=== PATIENT | female | born 1985 | race Two or more races ===

== ENCOUNTER 2021-09-05 01:54 | Emergency (ER) | payer OTHER ==
[~2021-09-05] VITALS: Ht 167.6 cm; Wt 72.6 kg
--- NOTE | 2021-09-05 02:23 | PHYS DOC ---
Past History Past Medical History: UTI Past Surgical History: No Surgical History Smoking: Non-smoker Alcohol Use: Occasionally Drug Use: None General Adult EDM: Chief Complaint: URINARY FREQUENCY HPI: HPI: 36-year-old female presents with report of dysuria and increased urinary frequency upon waking this morning. Patient denies any fever or chills. Denies flank pain. Denies hematuria. Patient does have past medical history of amando quent UTIs. Denies trauma. Review of Systems: Review of Systems: Constitutional: Denies fever or chills Eyes: Denies redness or eye pain HENT: Denies nasal congestion or sore throat Respiratory: Denies cough or shortness of breath Cardiovascular: Denies chest pain or palpitations GI: Denies abdominal pain, nausea, or vomiting : Reports dysuria and urinary frequency; denies hematuria Musculoskeletal: Denies back pain or joint pain Integument: Denies rash or skin lesions Neurologic: Denies headache, focal weakness or sensory changes Complete systems were reviewed and found to be within normal limits, except as documented in this note. Allergies: Allergies: Allergies Coded Allergies Type Severity Reaction Last Updated Verified Penicillins Allergy Unknown 09/05/21 Yes Sulfa (Sulfonamide Antibiotics) Allergy Unknown 09/05/21 Yes Physical Exam: PE: Constitutional: Well developed, well nourished, no acute distress, non-toxic appearance HENT: Normocephalic, atraumatic Eyes: Conjunctiva normal, no discharge Neck: Normal range of motion, supple Lungs & Thorax: No respiratory distress, equal chest rise and fall Abdomen: Soft, mild suprapubic tenderness, no guarding/rebound tenderness/distention Skin: Warm, dry, no erythema, no rash Back: No tenderness, no CVA tenderness Extremities: No tenderness, ROM intact, no edema Neurologic: Alert and oriented X 3, no focal deficits noted Psychologic: Affect normal, judgment normal Current Patient Data: Labs: Laboratory Tests Test 09/05/21 02:13 POC Urine HCG, Qualitative hcg negative (Negative) Vital Signs: Vital Signs Date Time Temp Pulse Resp B/P (MAP) Pulse Ox O2 Delivery O2 Flow Rate FiO2 09/05/21 02:02 97.5 65 16 116/70 (85) 97 Room Air EKG: EKG: [] Radiology/Procedures: Radiology/Procedures: [] Heart Score: C/O Chest Pain: N/A Course & Med Decision Making: Course & Med Decision Making Pertinent Lab studies reviewed. (See chart for details) Patient presents with report of dysuria and increased urinary frequency upon waking this morning. History of frequent UTIs. UA obtained with signs of infection. Urine negative. Symptomatic treatment provided with Pyridium. Empiric antibiotic initiated. Patient stable for discharge with outpatient follow-up with PCP. Discussed findings and plan with patient, who acknowledges understanding and agreement. Zeb Disclaimer: Zeb Disclaimer: This electronic medical record was generated, in whole or in part, using a voice recognition dictation system. Departure Departure: Impression: Primary Impression: Urinary tract infection Qualified Codes: N30.00 - Acute cystitis without hematuria Disposition: HOME / SELF CARE / HOMELESS Condition: STABLE Referrals: PCP,UNKNOWN (PCP) Patient Instructions: Urinary Tract Infection, [id number] Scripts Phenazopyridine Hcl (PYRIDIUM) 200 Mg Tablet 200 MG PO Q8HRS for urinary tract infection for 2 Days, #6 TAB Prov: VINNY CARLOS DO 09/05/21 Cephalexin (KEFLEX) 500 Mg Capsule 1 CAP PO TID for UTI for 7 Days, #21 CAP Prov: VINNY CARLOS DO 09/05/21 VINNY CARLOS DO Sep 05, 2021 02:23
[2021-09-05 02:31] LABS: BACTERIA,URINE FEW /HPF (0-FEW); BILIRUBIN,URINE NEG (NEG); CLARITY,URINE CLEAR; COLOR,URINE YELLOW; GLUCOSE,URINE NEG (NEG); NITRITE,URINE NEG (NEG); RBC,URINE OCC /HPF (0-2); SQUAMOUS EPITHELIAL CELL,UR FEW /LPF; UROBILINOGEN,URINE 0.2 mg/dL (0.2 mg/dL)
[2021-09-05] MEDS ORDERED: CEPH500C PO (02:36)
[2021-09-05] MEDS ORDERED: PHEN-318 PO (02:36)
[2021-09-05] MEDS ORDERED: PHENAZOPYRIDINE 200 MG TABLET. ONE (02:39)
[2021-09-05] MEDS ORDERED: CEPHALEXIN 250 MG CAPSULE ONE (02:39)
[2021-09-05 02:42] VITALS: BP 114/80
[2021-09-05] MEDS ORDERED: CEPHALEXIN 250 MG CAPSULE PO ONE (02:45)
[2021-09-05] MEDS ORDERED: PHENAZOPYRIDINE 200 MG TABLET. PO ONE (02:45)
== END 2021-09-05 02:43 | disposition home or self-care (01) ==
LOC: ER 01:54
DX: N30.00 Acute cystitis without hematuria (principal); Z87.440 Personal history of urinary (tract) infections; Z88.0 Allergy status to penicillin; Z88.2 Allergy status to sulfonamides
CPT/HCPCS: 81001; 81025; 87077; 87086; 87186; 99283